=== PATIENT | female | born 1985 | race African-American/Black ===

== ENCOUNTER 2016-11-29 18:47 | Inpatient (IN) | payer OTHER ==
[~2016-11-29] VITALS: Ht 165.1 cm; Wt 68.9 kg
[2016-11-29 18:48] VITALS: BP 133/79
[2016-11-29 19:35] LABS: CALCIUM 9.2 mg/dL (8.5-10.1); CREATININE 0.6 mg/dL (0.6-1.0)
[2016-11-29 19:39] LABS: ALBUMIN 3.7 g/dL (3.4-5.0); TOTAL BILIRUBIN 0.7 mg/dL (<0.1-1.0); TOTAL PROTEIN 8.3 g/dL (6.4-8.2)
[2016-11-29 20:12] LABS: MCH 17.8 pg (26.0-34.0)
[2016-11-29 20:13] LABS: HEMATOCRIT 22.9 % (37.0-47.0); HEMOGLOBIN 6.8 gm/dL (12.0-15.0); MCHC 29.5 g/dL (28.0-37.0); MCV 60.3 fL (80.0-100.0); PLATELET COUNT 608 thou/uL (150-400); RBC 3.81 mil/uL (4.20-5.00); WBC 10.4 thou/uL (4.0-11.0)
[2016-11-29 20:16] LABS: MANUAL DIFF YES
[2016-11-29 20:26] LABS: URINE BILIRUBIN NEGATIVE (Negative); URINE BLOOD NEGATIVE (Negative); URINE COLOR YELLOW; URINE GLUCOSE-RANDOM* NEGATIVE (Negative); URINE KETONES NEGATIVE (Negative); URINE NITRITE NEGATIVE (Negative); URINE PROTEIN (DIPSTICK) NEGATIVE (Negative); URINE UROBILINOGEN 0.2 E.U./dl (0.2-1.0)
[2016-11-29 20:54] LABS: ABSOLUTE NEUTROPHILS 7.5 thou/uL (1.4-8.2); ANISOCYTOSIS 2+; HYPOCHROMASIA 3+; MICROCYTES 2+; POLYCHROMASIA OCCASIONAL; TOTAL CELL COUNT 100
[2016-11-29 20:55] LABS: TARGET CELLS OCCASIONAL
[2016-11-29 22:06] VITALS: BP 122/74
[2016-11-29 22:30] VITALS: BP 131/84
[2016-11-29 22:49] LABS: OBSERVED RETIC COUNT 2.4 % (0.6-2.6)
[2016-11-29 22:50] LABS: % SATURATION 2 % (20-39); IRON 11 ug/dL (50-170); TIBC 477 ug/dL (250-450); UIBC 466 ug/dL
[2016-11-29 23:18] LABS: FOLIC ACID 6.6 ng/mL (8.6-58.9)
[2016-11-30] VITALS (8 sets, daily range): BP systolic 98–119; BP diastolic 59–84
[2016-11-30 02:50] LABS: HEMATOCRIT 23.2 % (37.0-47.0); HEMOGLOBIN 6.7 gm/dL (12.0-15.0); MCH 17.3 pg (26.0-34.0); MCV 59.7 fL (80.0-100.0); RBC 3.89 mil/uL (4.20-5.00); RDW 22.8 % (10.5-14.5); WBC 11.3 thou/uL (4.0-11.0)
[2016-11-30 02:59] LABS: CALCIUM 8.9 mg/dL (8.5-10.1); CREATININE 0.8 mg/dL (0.6-1.0); POTASSIUM 3.1 mmol/L (3.5-5.1)
[2016-12-01 03:46] VITALS: BP 99/57
[2016-12-01 05:52] LABS: HEMATOCRIT 25.5 % (37.0-47.0); HEMOGLOBIN 7.6 gm/dL (12.0-15.0); MCHC 29.6 g/dL (28.0-37.0); MCV 64.1 fL (80.0-100.0); PLATELET COUNT 642 thou/uL (150-400); RBC 3.98 mil/uL (4.20-5.00); RDW 26.9 % (10.5-14.5); WBC 18.2 thou/uL (4.0-11.0)
[2016-12-01 05:58] LABS: MANUAL DIFF YES
[2016-12-01 06:11] LABS: CALCIUM 9.1 mg/dL (8.5-10.1); CREATININE 0.7 mg/dL (0.6-1.0); POTASSIUM 3.4 mmol/L (3.5-5.1)
[2016-12-01 07:13] LABS: ABSOLUTE NEUTROPHILS 13.5 thou/uL (1.4-8.2); ANISOCYTOSIS 3+; HYPOCHROMASIA 2+; MACROCYTES 1+; MICROCYTES 2+; TOTAL CELL COUNT 100
[2016-12-01 07:14] LABS: LARGE PLATELETS OCCASIONAL; TARGET CELLS OCCASIONAL
[2016-12-01 07:45] VITALS: BP 90/41
[2016-12-01 11:42] VITALS: BP 90/41
== END 2016-12-01 12:38 | disposition home or self-care (01) | DRG 781 ==
LOC: ER 18:47 → EROBS 21:30 → 4W 22:29
PROVIDERS: Internal Medicine Endocrinology, Diabetes & Metabolism; Nurse Practitioner Family
PROC: 30233N1 Transfusion of Nonautologous Red Blood Cells into Peripheral Vein, Percutaneous Approach (ICD-10-PCS; principal; 2016-11-30)
DX: O99.011 Anemia complicating pregnancy, first trimester (principal); O20.0 Threatened abortion; O99.111 Other diseases of the blood and blood-forming organs and certain disorders involving the immune mechanism complicating pregnancy, first trimester; D64.9 Anemia, unspecified; D57.3 Sickle-cell trait; O99.281 Endocrine, nutritional and metabolic diseases complicating pregnancy, first trimester; E87.6 Hypokalemia; O26.51 Maternal hypotension syndrome, first trimester; Z88.6 Allergy status to analgesic agent; Z91.040 Latex allergy status; Z3A.10 10 weeks gestation of pregnancy
CPT/HCPCS: 10040